=== PATIENT | male | born 1975 | race Caucasian/White ===

== ENCOUNTER 2021-08-30 10:18 | Emergency (ER) | payer BC ==
[2021-08-30] MEDS ORDERED: Ketorolac 15 MG/ML SDV IM ONE (12:26)
[2021-08-30] MEDS ORDERED: Lidocaine 5% 700 MG Patch TRDERM ONE (12:52)
--- NOTE | 2021-08-30 12:56 | EDM.PDOC ---
ED HPI GENERAL MEDICAL PROBLEM - General Chief Complaint: Back Pain or Injury Stated Complaint: BACK PAIN Time Seen by Provider: 08/30/21 12:06 - History of Present Illness INITIAL COMMENTS - FREE TEXT/NARRATIVE: CHIEF COMPLAINT(S): Back pain HISTORY OF PRESENT ILLNESS: This is a 45-year-old man and with a past medical history of lumbar chronic pain who comes to the emergency department with a chief complaint of back pain. The patient states that he has been experiencing back pain which she describes as dull and achy that he describes as occasionally throbbing rated 8 out of 10. He states that he has not tried anything at home as ibuprofen and stuff does not help. He denies any bowel incontinence, urinary incontinence, saddle anesthesia, rash, injury, use of anticoagulation, IV drug use. He states that the pain does not radiate anywhere is located on his lower back on both sides. He denies any trouble walking. He denies any numbness or tingling. There are no exacerbating or relieving factors however it seems to be worse with every thing. He states that he was seen by a data warehousing specialist who stated that at this time his imaging findings were not concerning for a surgical intervention and referred him to a pain clinic here in [facility] however that person no longer practices so he has been referred to a different pain specialist who is unable to see him until September 28, 2021. REVIEW OF SYSTEMS: Constitutional: Denies fever, chills. Eyes: Denies eye pain Ears, Nose, Mouth, & Throat: Denies earache Cardiovascular: Denies chest pain Respiratory: Denies shortness of breath Gastrointestinal: Denies Nausea, vomiting, diarrhea, hematochezia, bowel incontinence Genitourinary: Denies hematuria, urinary incontinence Skin:Denies a rash MSK: Positive for lower back pain Neurological: Denies blurred vision, numbness, tingling, weakness Psychiatric: Denies depression PAST MEDICAL HISTORY: As per history of present illness and as reviewed below otherwise noncontributory. SURGICAL HISTORY: As per history of present illness and as reviewed below otherwise noncontributory. SOCIAL HISTORY: As per history of present illness and as reviewed below otherwise noncontributory. FAMILY HISTORY: As per history of present illness and as reviewed below otherwise noncontributory. EXAMINATION OF ORGAN SYSTEMS/BODY AREAS: Constitutional: Blood pressure is 126/84, heart rate 110, respiratory rate 16 with an oxygen saturation 96% on room air. Temperature 36.8 General: Well-appearing man who is in no acute distress Psychiatric: Appropriate mood and affect. Eyes: No scleral icterus or conjunctival erythema Cardiovascular: Regular, rate, and rhythm. No gallops, murmurs, or rubs. Bilateral upper extremity pulses symmetric and intact. Respiratory: Lungs clear to auscultation bilaterally. No wheezes, rales, or rhonchi. Musculoskeletal: Normal range of motion. There is no midline thoracic, lumbar or cervical tenderness. There is paraspinal muscle tenderness in the lumbar reg ion. Skin: No lesions or abrasions. Neurological: Alert, GCS 15 strength and sensation intact. MEDICAL DECISION MAKING AND COURSE IN THE ED WITH INTERPRETATION/REVIEW OF DIAGNOSTIC STUDIES: This is a 45-year-old man and with a past medic history of chronic lumbar pain who comes to the emergency department with acute on chronic lumbar pain who has no red flag symptoms. At this time I did review the patient's chart who had a lumbar spine MRI completed on January 21, 2020 which did reveal mild discogenic degenerative change at L5-S1 resulting in mild contact but no compression of the transversing S1 nerve roots. Otherwise it was unremarkable. Given the MRI findings and the the patient has been evaluated by a data warehousing specialist and recommended outpatient pain management I did discuss pain management options with the patient. He was given strict return precautions. The patient was amenable discharge and had no further questions. DISPOSITION: The patient was discharged home in stable condition. The patient will follow up with primary care physician in 3 to 5 days CONDITION: Fair PROCEDURES: None FINAL IMPRESSION(S)/DIAGNOSES: 1. Chronic back pain Abdullahi Martinez M.D. back Pain Score (Numeric/FACES): 8 - Related Data Allergies Allergy/AdvReac Type Severity Reaction Status Date / Time No Known Allergies Allergy Verified 08/30/21 12:08 Home Meds: Home Meds Diclofenac Sodium [Voltaren] 50 mg PO TID #30 tab.ec 08/30/21 [Rx] Lidocaine 5% [Lidoderm 5%] 1 patch TOP DAILY #7 patch 08/30/21 [Rx] methocarbamoL [Methocarbamol] 1,500 mg PO TID #42 tablet 08/30/21 [Rx] Past Medical History - Past Health History Medical/Surgical History: Denies Medical/Surgical History Social & Family History - Family History Family Medical History: No Pertinent Family History - Tobacco Use Tobacco Use Status *Q: Never Tobacco User - Caffeine Use Caffeine Use: Reports: Coffee, Energy Drinks - Recreational Drug Use Recreational Drug Use: No ED ROS GENERAL - Review of Systems Review Of Systems: See Below ED EXAM, GENERAL - Physical Exam Exam: See Below Course - Vital Signs Last Recorded V/S: Last Vital Signs Temp 36.8 C 08/30/21 12:10 Pulse 107 H 08/30/21 14:15 Resp 20 08/30/21 14:15 BP 114/74 08/30/21 14:15 Pulse Ox 100 08/30/21 14:15 - Orders/Labs/Meds Meds: Medications Discontinued Medications Generic Name Dose Route Start Last Admin Trade Name Mattq PRN Reason Stop Dose Admin Ketorolac Tromethamine 15 mg 08/30/21 12:26 08/30/21 12:46 Ketorolac 15 Mg/Ml Sdv IM 08/30/21 12:27 15 mg ONETIME ONE Administration Lidocaine 700 mg 08/30/21 12:52 08/30/21 13:38 Lidocaine 5% 700 Mg Patch TRDERM 08/30/21 12:53 700 mg ONETIME ONE Administration Departure - Departure Time of Disposition: 12:54 Disposition: Home, Self-Care 01 Condition: Fair Clinical Impression: Chronic back pain - Discharge Information *PRESCRIPTION DRUG MONITORING PROGRAM REVIEWED*: No *COPY OF PRESCRIPTION DRUG MONITORING REPORT IN PATIENT BERENICE: No Prescriptions: Lidocaine 5% [Lidoderm 5%] 1 patch TOP DAILY #7 patch methocarbamoL [Methocarbamol] 1,500 mg PO TID #42 tablet Diclofenac Sodium [Voltaren] 50 mg PO TID #30 tab.ec Instructions: Managing Chronic Back Pain, Chronic Back Pain, [id number] Referrals: Cricket Alvarado MD [Primary Care Provider] - Forms: ED Department Discharge Additional Instructions: You were evaluated today on an emergent basis. At this time I do recommend that you use ice alternated with heat 20 minutes 4 times a day in addition to the pain regimen below. I did discuss with you that you should use a lidocaine patch to the most affected area and switch it out daily. At this time I do recommend that you keep your appointment with your pain specialist and speak with Dr. Alvarado regarding a pain specialist that is closer. If you have any worsening symptoms such as redness, defecating yourself, urinating on yourself, or you are concerned you are welcome to return to the emergency department. Please use: Tylenol 500-1000mg every 6 hours (DO NOT TAKE MORE THAN 4000mg in 1 day) Diclofenac 50mg every 8 hours (Take with food as it can cause ulcers, GI upset) In addition to Tylenol and Motrin you may use over the counter creams such as Voltaren Cream or Lidocaine Cream (Lidoderm) as needed 4 times a day for symptomatic relief. Ice the area 20 minutes 4 times per day [facility] [address] [place] [address] [facility] [address] [place] [id number] The patient is informed of any results of their evaluation and diagnostic workup and all questions are answered. They are given discharge instructions and return precautions. The patient is stable for discharge. The patient states they understand and agree with the plan and that they will return if their symptoms get worse or if they have any new concerns. The following information is given to patients seen in the emergency department who are being discharged to home. This information is to outline your options for follow-up care. We provide all patients seen in our emergency department with a follow-up referral. The need for follow-up, as well as the timing and circumstances, are variable depending upon the specifics of your emergency department visit. If you don't have a primary care physician on staff, we will provide you with a referral. We always advise you to contact your personal physician following an emergency department visit to inform them of the circumstance of the visit and for follow-up with them and/or the need for any referrals to a consulting specialist. The emergency department will also refer you to a specialist when appropriate. This referral assures that you have the opportunity for follow-up care with a specialist. All of these measure are taken in an effort to provide you with optimal care, which includes your follow-up. Under all circumstances we always encourage you to contact your private physician who remains a resource for coordinating your care. When calling for follow-up care, please make the office aware that this follow-up is from your recent emergency room visit. If for any reason you are refused follow-up, please contact the [facility] Emergency Department at and asked to speak to the emergency department charge nurse. Sepsis Event Note (ED) - Evaluation Sepsis Screening Result: No Definite Risk
== END 2021-08-30 14:17 | disposition home or self-care (01) ==
LOC: MW.ED 10:18
DX: G89.29 Other chronic pain (principal); M54.50 Low back pain, unspecified
CPT/HCPCS: 96372; 99283; A9270; J1885